=== PATIENT | female | born 1975 | race Caucasian/White ===

== ENCOUNTER 2019-10-16 23:38 | Emergency (ER) | payer MEDICAID ==
[~2019-10-16] VITALS: Ht 170.2 cm; Wt 81.8 kg
[2019-10-16 23:48] VITALS: Ht 170.2 cm; Wt 81.8 kg
[2019-10-16] MEDS ORDERED: SYNTHROID125 MCG PO (23:50)
[2019-10-16] MEDS ORDERED: ADIPEX-P37.5 M1 PO (23:51)
[2019-10-17] MEDS ORDERED: PENICILLIN V P500 MG PO (00:10)
[2019-10-17] MEDS ORDERED: ORAL ANALGESIC9 GM TOPICAL (00:10)
[2019-10-17 00:51] VITALS: BP 118/84
== END 2019-10-17 00:51 | disposition home or self-care (01) ==
LOC: D.ER 23:38
DX: K08.89 Other specified disorders of teeth and supporting structures (principal); S02.5XXA Fracture of tooth (traumatic), initial encounter for closed fracture; Z72.0 Tobacco use; E03.9 Hypothyroidism, unspecified